=== PATIENT | female | born 1955 | race Caucasian/White ===

== ENCOUNTER 2016-12-17 11:24 | Emergency (ER) | payer OTHER ==
--- NOTE | ~2016-12-17 | CR282 ---
[facility]. [facility] A Service of [facility] & [facility] RADIOLOGY TEXT RESULTS PATIENT: RICCO PEDROZA LOCATION: SED : 57 UNIT #: [id number] AGE: [address]: Susana Romero APRN SEX: F ORDER DR: [id number] [address] [address] [id number] E MR#: [id number] Acc #: [id number] NAME: RICCO PEDROZA : 1955 SEX: F STUDY DATE/TIME: 12/17/2016 11:33 UNIT: SED ROOM: STUDY DESCRIPTION: CR Wrist Min 3 View Rt Attending Physician: Susana Romero A.P.R.N. Ordering Physician: Susana Camacho A.P.R.N. MEDICAL IMAGING REPORT This report is preliminary unless electronic signature is present. EXAM Right wrist INDICATION Right wrist pain since tripping over dog this morning. FINDINGS 3 views of the right wrist were obtained. No fracture is identified. The bones are normal. IMPRESSION Normal right wrist. Dictated by... Francisco J Duran M.D. THIS IS AN ELECTRONICALLY VERIFIED REPORT Francisco J Duran M.D. at 12/17/2016 1:37 PM Junior TD: 12/17/2016 13:18 JOB #: [id number] MEDICAL IMAGING REPORT Page 1 of 1
--- NOTE | ~2016-12-17 | CT71 ---
[facility] A Service [facility] RADIOLOGY TEXT RESULTS PATIENT: RICCO PEDROZA LOCATION: SED : 57 UNIT #: [id number] AGE: [address]: Susana Romero APRN SEX: F ORDER DR: [id number] [place] [id number] E MR#: [id number] Acc #: [id number] NAME: RICCO PEDROZA : 1955 SEX: F STUDY DATE/TIME: 12/17/2016 11:31 UNIT: SED ROOM: STUDY DESCRIPTION: CT Head Wo Contrast Attending Physician: Susana Romero A.P.R.N. Ordering Physician: Susana Romero A.P.R.N. MEDICAL IMAGING REPORT This report is preliminary unless electronic signature is present. EXAM Head CT, no contrast, 12/17/2016. PROCEDURE Axial unenhanced head CT. This CT exam was performed with one or more of the following radiation dose reduction techniques: automatic exposure control, adjustment of mA and/or kV according to patient size, and iterative reconstruction. COMPARISON None HISTORY Closed head injury. Fell and struck face this morning. Pain. FINDINGS Ventricular size and configuration are normal. There is no evidence of acute infarct or hemorrhage. There are no extraaxial fluid collections. No mass lesion or mass effect is seen. There are no skull fractures. IMPRESSION Normal noncontrast head CT. Dictated by... Duane Owens M.D. THIS IS AN ELECTRONICALLY VERIFIED REPORT Duane Owens M.D. at 12/18/2016 9:40 AM TEV/tony [facility] A Service of [facility] RADIOLOGY TEXT RESULTS PATIENT: RICCO PEDROZA LOCATION: SED : 57 UNIT #: [id number] AGE: [address]: Romney,Susana C BANJO REPAIRER SEX: F ORDER DR: TD: 12/17/2016 13:08 JOB #: [id number] MEDICAL IMAGING REPORT Page 1 of 1
--- NOTE | ~2016-12-17 | CR173 ---
[facility]. [facility] A Service of [facility] & [facility] RADIOLOGY TEXT RESULTS PATIENT: RICCO PEDROZA LOCATION: SED : 57 UNIT #: [id number] AGE: [address]: Susana Romero APRN SEX: F ORDER DR: [id number] [address] [address] [id number] E MR#: [id number] Acc #: [id number] NAME: RICCO PEDROZA : 1955 SEX: F STUDY DATE/TIME: 12/17/2016 11:33 UNIT: SED ROOM: STUDY DESCRIPTION: CR Knee 3 Views Rt Attending Physician: Susana Romero A.P.R.N. Ordering Physician: Susana Camacho A.P.R.N. MEDICAL IMAGING REPORT This report is preliminary unless electronic signature is present. EXAM Right knee HISTORY Right knee pain since fall, tripping over dog this morning. FINDINGS AP and lateral projection of the knee shows smooth articular anatomy without indication of fracture or dislocation at the major weight-bearing surface of the knee. There is no indication of radiopaque foreign body about the knee surface or joint effusion. IMPRESSION Normal knee. Dictated by... Francisco J Duran M.D. THIS IS AN ELECTRONICALLY VERIFIED REPORT Francisco J Duran M.D. at 12/17/2016 1:37 PM Cheryl TD: 12/17/2016 13:29 JOB #: [id number] MEDICAL IMAGING REPORT Page 1 of 1
[~2016-12-17 11:24] MED LIST: ALDACTAZIDE 25/1 TAB PO; ALDACTONE25 MG PO; ALEVE; ALLOPURINOL300 MG PO; ARTHROTEC 501 TAB.EC PO; AVAPRO PO; CIPRO PO; CLARITIN10 M3 PO; CLARITIN10 MG PO; CYMBALTA; EC-NAPROSYN500 MG PO; HCTZ PO; HYDROCODON-ACE1 EAC7 PO; LEXAPRO PO; LORATADINE PO; MAXALT MLT10 MG/TAB PO; MICARDIS40 MG PO; NEURONTIN300 MG PO; NEXIUM PO; NORCO1 TAB 10/3 PO; PHENERGAN PO; PRILOSEC PO; TOPAMAX PO; WELLBUTRIN PO; WELLBUTRIN SR PO; WELLBUTRIN SR200 MG PO
== END 2016-12-17 12:43 | disposition home or self-care (01) ==
LOC: SED 11:24
DX: S00.93XA Contusion of unspecified part of head, initial encounter (principal); S60.211A Contusion of right wrist, initial encounter; S80.01XA Contusion of right knee, initial encounter; W01.0XXA Fall on same level from slipping, tripping and stumbling without subsequent striking against object, initial encounter; Y92.009 Unspecified place in unspecified non-institutional (private) residence as the place of occurrence of the external cause; I10 Essential (primary) hypertension; F32.9 Major depressive disorder, single episode, unspecified; K21.9 Gastro-esophageal reflux disease without esophagitis; Z90.710 Acquired absence of both cervix and uterus; Z23 Encounter for immunization; Z88.0 Allergy status to penicillin; Z88.2 Allergy status to sulfonamides
CPT/HCPCS: 70450; 73110; 73562; 90471; 90715; 99284